=== PATIENT | female | born 1955 | race Caucasian/White ===

== ENCOUNTER 2021-08-13 07:40 | Day surgery (SDC) | payer MEDICARE, MEDICAID ==
[~2021-08-13 07:40] MED LIST: Sodium Chloride 0.9% 10 ML Syringe FLUSH PRN
[2021-08-13] MEDS ORDERED: Propofol 200 MG/20 ML SDV IV ONE (07:41)
[2021-08-13] MEDS: Lactated Ringers 1,000 ML IV SCH (08:12)
[2021-08-13 13:26] VITALS: BP 129/70; PULSE 56
== END 2021-08-13 11:00 | disposition home or self-care (01) ==
LOC: FB.SDS 07:40
PROVIDERS: ATTEND Surgery
DX: Z12.11 Encounter for screening for malignant neoplasm of colon (principal); K57.30 Diverticulosis of large intestine without perforation or abscess without bleeding; D12.6 Benign neoplasm of colon, unspecified; E03.9 Hypothyroidism, unspecified; I12.9 Hypertensive chronic kidney disease with stage 1 through stage 4 chronic kidney disease, or unspecified chronic kidney disease; K21.9 Gastro-esophageal reflux disease without esophagitis; N18.9 Chronic kidney disease, unspecified; Z80.0 Family history of malignant neoplasm of digestive organs; Z79.899 Other long term (current) drug therapy; Z88.8 Allergy status to other drugs, medicaments and biological substances; Z88.2 Allergy status to sulfonamides; Z90.49 Acquired absence of other specified parts of digestive tract; Z98.890 Other specified postprocedural states
CPT/HCPCS: 00812-QZ; 88305; J2704; J7120